=== PATIENT | male | born 1940 | race Caucasian/White ===

== ENCOUNTER 2016-12-27 05:01 | Emergency (ER) | payer MEDICARE, MEDICAID ==
[2016-12-27] MEDS ORDERED: SINGULAIR10 MG PO (22:36)
[2016-12-27] MEDS ORDERED: PROTONIX40 MG PO (22:36)
[2016-12-27] MEDS ORDERED: TRAVATAN Z2.5 ML EACH EYE (22:38)
[2016-12-27] MEDS ORDERED: ALPHAGAN 0.2%5 ML EACH EYE (22:38)
[2016-12-27] MEDS ORDERED: FLOMAX0.4 MG PO (22:38)
[2016-12-27] MEDS ORDERED: PEPCID AC20 MG PO (22:39)
[2016-12-27] MEDS ORDERED: SYMBICORT 16010.2 GM INH (22:39)
[2016-12-28] MEDS ORDERED: ACETAMINOPHEN325 MG PO (05:46)
[2016-12-28] MEDS ORDERED: BUMETANIDE0.5 MG PO (05:47)
[2016-12-28] MEDS ORDERED: NASCOBAL1 EACH NASAL (05:48)
[2016-12-28] MEDS ORDERED: VITAMIN D31000 UNI2 PO (05:48)
[2016-12-28] MEDS ORDERED: FERROUS SULFAT325 MG PO (05:49)
[2016-12-28] MEDS ORDERED: ATIVAN0.5 MG PO (05:51)
[2016-12-28] MEDS ORDERED: MIRALAX17 GM PO (05:52)
[2016-12-28] MEDS ORDERED: ZOCOR40 MG PO (05:53)
[2016-12-28 09:57] VITALS: BMI 17.9
== END 2016-12-27 06:00 | disposition home or self-care (01) ==
LOC: D.ER 05:01
DX: H10.32 Unspecified acute conjunctivitis, left eye (principal); H01.009 Unspecified blepharitis unspecified eye, unspecified eyelid; H40.9 Unspecified glaucoma; J44.9 Chronic obstructive pulmonary disease, unspecified; K58.9 Irritable bowel syndrome, unspecified

== ENCOUNTER 2016-12-27 15:36 | Inpatient (IN) | payer MEDICARE, MEDICAID ==
[~2016-12-27] VITALS: Ht 190.5 cm; Wt 65.3 kg
[2016-12-27 17:07] LABS: APPEARANCE CLEAR (CLEAR); BILIRUBIN NEGATIVE (NEGATIVE); COLOR YELLOW (YELLOW); GLUCOSE NEGATIVE (NEGATIVE); KETONE NEGATIVE (NEGATIVE); LEUKOCYTE ESTERASE NEGATIVE (NEGATIVE); NITRITE NEGATIVE (NEGATIVE); PROTEIN NEGATIVE (NEGATIVE); SPECIFIC GRAVITY 1.015 (1.005-1.020); UROBILINOGEN NORMAL (NORMAL)
[2016-12-27 17:35] LABS: BASOPHILS 0.2 % (0-2); EOSINOPHILS 0.1 % (0-7); HEMATOCRIT 38.9 % (42.0-54.0); HEMOGLOBIN 12.3 g/dL (13.5-17.5); IMMATURE GRANULOCYTES 0.3 % (0-5); MCH 29.6 pg (26.0-34.0); MCHC 31.6 g/dL (31.0-37.0); MCV 93.7 fL (80.0-100.0); MEAN PLATELET VOLUME 9.8 fL (7.4-10.4); MONOCYTES 7.5 % (2-11); NEUTROPHILS 87.9 % (40-80); PLATELET COUNT 201 10x3/uL (130-400); RBC 4.15 10x6/uL (4.20-6.10); RDW 15.1 % (11.5-14.5); WBC 11.8 10x3/uL (4.8-10.8)
[2016-12-27 17:47] LABS: ALBUMIN 3.5 g/dL (3.4-5.0); ANION GAP 13.5 mmol/L (8-16); BILIRUBIN - TOTAL 0.4 mg/dL (0.2-1.3); CALCIUM 9.8 mg/dL (8.5-10.1); CREATININE - SERUM 2.2 mg/dL (0.6-1.3); POTASSIUM - SERUM 4.5 mmol/L (3.5-5.1); PROTEIN - SERUM 7.1 g/dL (6.4-8.2)
[2016-12-27 18:45] LABS: UDS - AMPHET NEGATIVE QUAL (NEGATIVE); UDS - BARB NEGATIVE QUAL (NEGATIVE); UDS - BENZO NEGATIVE QUAL (NEGATIVE); UDS - COCAINE NEGATIVE QUAL (NEGATIVE); UDS - METH NEGATIVE QUAL (NEGATIVE); UDS - OPIATE POSITIVE QUAL (NEGATIVE); UDS - PCP NEGATIVE QUAL (NEGATIVE); UDS - THC NEGATIVE QUAL (NEGATIVE)
--- NOTE | 2016-12-27 22:05 | NUR ---
RECIEVED PT FROM ER VIA BED, AMBULATED TO ROOM, ASSESSMENT COMPLETED ALONG WITH HISTORY, UNABLEL TO COMPLETE MED REC AT THIS TIME DUE TO PT UNABLE TO REMEMBER ALL MEDS, ORIENTED TO ROOM, SR'S UP, CL IN REACH, WILL MONITOR
[2016-12-27] MEDS ORDERED: PROTONIX40 MG PO (22:36)
[2016-12-27] MEDS ORDERED: SINGULAIR10 MG PO (22:36)
[2016-12-27] MEDS ORDERED: TRAVATAN Z2.5 ML EACH EYE (22:38)
[2016-12-27] MEDS ORDERED: ALPHAGAN 0.2%5 ML EACH EYE (22:38)
[2016-12-27] MEDS ORDERED: FLOMAX0.4 MG PO (22:38)
[2016-12-27] MEDS ORDERED: PEPCID AC20 MG PO (22:39)
[2016-12-27] MEDS ORDERED: SYMBICORT 16010.2 GM INH (22:39)
[2016-12-28] VITALS (7 sets, daily range): BP systolic 76–137; BP diastolic 46–80; Ht 190.5 cm; Wt 65.3 kg
[2016-12-28] MEDS ORDERED: ACETAMINOPHEN325 MG PO (05:46)
[2016-12-28] MEDS ORDERED: BUMETANIDE0.5 MG PO (05:47)
[2016-12-28] MEDS ORDERED: VITAMIN D31000 UNI2 PO (05:48)
[2016-12-28] MEDS ORDERED: NASCOBAL1 EACH NASAL (05:48)
[2016-12-28] MEDS ORDERED: FERROUS SULFAT325 MG PO (05:49)
[2016-12-28] MEDS ORDERED: ATIVAN0.5 MG PO (05:51)
[2016-12-28] MEDS ORDERED: MIRALAX17 GM PO (05:52)
[2016-12-28] MEDS ORDERED: ZOCOR40 MG PO (05:53)
--- NOTE | 2016-12-28 07:37 | NUR ---
PATIENT STANDING IN THE DOORWAY OF HIS ROOM WITH HIS CANE. PATIENT IS ALERT AND ORIENTED X4. PATIENT REQUESTING TO CALL HIS SISTER ON THE PHONE. NG TUBE PATENT TO PATIENT'S LEFT NARE AND CONNECTED TO LIS. IV SITE PATENT WITHOUT ANY S/S OF INFECTION NOTED IN PATIENT'S RIGHT HAND. PATIENT DENIES ANY PAIN. ASSESSMENT COMPLETED. SEE FLOWSHEET FOR ANY DETAILS. I CALLED PATIENT'S SISTER, KATIUSKA, AND SHE STATED THAT SHE WOULD BE COMING TO THE HOSPITAL TO VISIT THE PATIENT. CALL LIGHT IN PATIENT'S REACH. WILL MONITOR PATIENT.
--- NOTE | 2016-12-28 15:30 | NUR ---
PATIENT'S NG TUBE DISCONTINUED PER DR. NESBITT'S ORDERS. PATIENT TOLERATED WELL.
[2016-12-29 04:00] VITALS: BP 123/69
[2016-12-29 07:09] LABS: BASOPHILS 0.2 % (0-2); EOSINOPHILS 4.7 % (0-7); HEMATOCRIT 33.5 % (42.0-54.0); HEMOGLOBIN 10.4 g/dL (13.5-17.5); IMMATURE GRANULOCYTES 0.2 % (0-5); LYMPHOCYTES 11.5 % (15-50); MCH 29.5 pg (26.0-34.0); MCV 95.2 fL (80.0-100.0); MEAN PLATELET VOLUME 10.1 fL (7.4-10.4); MONOCYTES 8.8 % (2-11); NEUTROPHILS 74.6 % (40-80); PLATELET COUNT 177 10x3/uL (130-400); RBC 3.52 10x6/uL (4.20-6.10); RDW 15.4 % (11.5-14.5)
[2016-12-29 07:12] LABS: WBC 4.9 10x3/uL (4.8-10.8)
[2016-12-29 07:19] LABS: ANION GAP 9.7 mmol/L (8-16); CALCIUM 8.4 mg/dL (8.5-10.1); CARBON DIOXIDE 26.2 mmol/L (21.0-32.0); POTASSIUM - SERUM 3.9 mmol/L (3.5-5.1)
[2016-12-29 07:22] LABS: CREATININE - SERUM 1.3 mg/dL (0.6-1.3)
[2016-12-29 09:35] VITALS: BP 120/60
--- NOTE | 2016-12-29 10:28 | NUR ---
PATIENT RESTING IN HIS BED. NEW ORDERS RECEIVED. SCHEDULED MORNING MEDICATIONS GIVEN TO PATIENT. PATIENT TOLERATED WELL. PATIENT DENIES ANY NEEDS AT PRESENT TIME. CALL LIGHT IN PATIENT'S REACH. WILL MONITOR.
--- NOTE | 2016-12-29 13:40 | NUR ---
NEW IV SITED TO PATIENT'S LEFT HAND USING A 22 GAUGE CATHETER NEEDLE X1 STICK. PATIENT TOLERATED WELL.
--- NOTE | 2016-12-29 18:20 | NUR ---
PATIENT RESTING IN THE BED AND WATCHING T.V. PATIENT DENIES ANY NEEDS AT PRESENT TIME. CALL LIGHT IN PATIENT'S REACH. WILL MONITOR.
[2016-12-29 18:22] VITALS: BP 118/64
--- NOTE | 2016-12-29 19:35 | NUR ---
RECIEVED SHIFT REPORT. PT IS LYING IN BED. ALERT AND ORIENTED AND ABLE TO VERBALIZE NEEDS. IV IS PATENT AND FLUIDS ARE RUNNING PER ORDER. PT IS AMBULATORY BUT WAS INSTRUCTED TO CALL FOR ANY ASSISTANCE NEEDED. PT DENIES ANY PAIN AT THIS TIME. NO NEEDS ARE VERBALIZED AT THIS TIME. WILL CONTINUE TO MONITOR. SIDE RAILS ARE UP X 2. BED IS IN LOWEST POSITION. CALL LIGHT IS WITHIN REACH.
[2016-12-29 20:00] VITALS: BP 118/64
--- NOTE | 2016-12-29 20:35 | NUR ---
SHIFT ASSESSMENT COMPLETED. NIGHT MEDS GIVEN WITH NO PROBLEMS. NO NEEDS ARE VOICED. WILL MONITOR. SIDE RAILS X 2. BED LOW. CALL LIGHT IN REACH.
[2016-12-30 04:00] VITALS: BP 117/63
[2016-12-30 07:00] LABS: BASOPHILS 0.2 % (0-2); EOSINOPHILS 4.4 % (0-7); HEMOGLOBIN 10.7 g/dL (13.5-17.5); LYMPHOCYTES 14.3 % (15-50); MCH 30.1 pg (26.0-34.0); MCHC 31.5 g/dL (31.0-37.0); MCV 95.8 fL (80.0-100.0); MEAN PLATELET VOLUME 10.3 fL (7.4-10.4); MONOCYTES 11.3 % (2-11); NEUTROPHILS 69.8 % (40-80); PLATELET COUNT 174 10x3/uL (130-400); RBC 3.55 10x6/uL (4.20-6.10); RDW 15.5 % (11.5-14.5)
[2016-12-30 07:09] LABS: ANION GAP 9.5 mmol/L (8-16); CALCIUM 7.8 mg/dL (8.5-10.1); CREATININE - SERUM 1.1 mg/dL (0.6-1.3); POTASSIUM - SERUM 3.5 mmol/L (3.5-5.1)
--- NOTE | 2016-12-30 07:50 | NUR ---
ASSESSMENT COMPLETE. IV TO L HAND PATENT. BLIND IN R EYE. COMPLAINING OF HAVING DECREASED VISION TO L EYE. DENIES ANY NEEDS AT PRESENT.
[2016-12-30 08:25] VITALS: BP 135/70
--- NOTE | 2016-12-30 10:00 | NUR ---
UP AMBULATING IN HALLWAY WITH CANE. STATES "HE JUST CAN'T STAY IN ROOM". WHEN ASKED ABOUT TAKING ANXIETY MEDICATIONS AT HOME, HE STATES HE DOESN'T TAKE THEM BECAUSE THEY ARE TOO STRONG.
--- NOTE | 2016-12-30 11:38 | NUR ---
Patient Name: SADI ALCALA Admission Status: ER Accout number: [id number] Admission Date: 12-27-2016 : 1940 Admission Diagnosis: Attending: TAD Current LOS: 3 Anticipated DC Date: 12-31-2016 Planned Disposition: Home with Home Health Primary Insurance: MEDICARE A & B Discharge Planning Comments: CM MET WITH PATIENT REGARDING D/C NEEDS AND PLANS. PATIENT STATED HE LIVES ALONE AND HIS SISTER (JULIA) WILL PICK HIM UP AT DISCHARGE. PATIENT STATED HE HAS ONE STEP TO ENTER HOME AND NO STAIRS INSIDE. PATIENT IS INDEPENDENT WITH HIS CARE AND HAS A WALKER, OXYGEN HS, PORT O2, AND NEBULIZER AT HOME. PATIENTS PCP IS DR. MENDOZA AT [facility] AND USES [facility] [address] FOR HIS PHARMACY. PATIENT IS CURRENT WITH [facility] [employer]. CM WILL CONTINUE TO FOLLOW PATIENT WITH D/C NEEDS AND PLANS. PCP DR. REJI ANDINO ON [address] [phone] JULIA (SISTER) [phone] CURRENT [facility] [phone] Feeder Operator Automatic: Fide Morales
--- NOTE | 2016-12-30 11:41 | NUR ---
Is the patient Alert and Oriented? Yes 0 * How many steps to enter\exit or inside your home? 1 0 * PCP DR. MENDOZA 0 * Pharmacy [facility] [address] 0 * Preadmission Environment Home Alone 0 * ADLs Independent 0 * Equipment Nebulizer Oxygen Walker 0 * Other Equipment PORTABLE O2 0 * List name and contact numbers for known caregivers / representatives who currently or will assist patient after discharge: JULIA BRAND (SISTER) [phone] 0 * Community resources currently utilized Home Health 0 * Please name any agencies selected above. [facility] 0 * Additional services required to return to the preadmission environment? Yes 0 * Can the patient safely return to the preadmission environment? Yes 0 * Has this patient been hospitalized within the prior 30 days at any hospital? No 0 Grand Total: 0
[2016-12-30 12:53] VITALS: BP 107/64
--- NOTE | 2016-12-30 14:03 | NUR ---
NO CHANGES NOTED AT PRESENT.
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
--- NOTE | 2016-12-30 14:25 | NUR ---
NUTRITION MONITORING & EVAL CHART REVIEWED, PT CURRENTLY RESTING. DIET ADVANCED TO REG WITH 100% INTAKE LUNCH. RD FOLLOWING
--- NOTE | 2016-12-30 14:51 | NUR ---
LATE ENTRY 11:32: CM HAD VISITED PATIENT REGARDING HIS D/C NEEDS THIS AM AND HE HAD STATED HE WAS SO SICK THAT HE TOLD HOME HEALTH "WHAT DO I HAVE TO DO - KILL MYSELF" THEN HE SAID 2 DEPUTIES CAME TO HIS HOME WITH AN AMBULANCE AND BROUGHT HIM TO THE HOSPITAL WHERE HE GOT THE CARE HE NEEDED. PATIENT STATED "I WAS SO SICK I HAD TO DO SOMETHING". CM WILL CONTINUE TO FOLLOW PATIENT WITH D/C NEEDS AND PLANS.
[2016-12-30 15:57] VITALS: BP 121/65
--- NOTE | 2016-12-30 18:13 | NUR ---
RESTING QUIETLY IN BED AT THIS TIME. DENIES ANY NEEDS AT PRESENT.
--- NOTE | 2016-12-30 19:35 | NUR ---
RECIEVED SHIFT REPORT. PT IS LYING IN BED. ALERT AND ORIENTED AND ABLE TO VERBALIZE NEEDS. IV IS PATENT AND FLUIDS ARE RUNNING PER ORDER.PT IS AMBULATORY BUT WAS INSTRUCTED TO CALL FOR ANY ASSISTANCE NEEDED. PT DENIES ANY PAIN AT THIS TIME. NO NEEDS ARE VERBALIZED AT THIS TIME. WILL CONTINUE TO MONITOR. SIDE RAILS ARE UP X 2. BED IS IN LOWEST POSITION. CALL LIGHT IS WITHIN REACH.
[2016-12-30 20:00] VITALS: BP 120/74
--- NOTE | 2016-12-30 20:42 | NUR ---
SHIFT ASSESSMENT COMPLETED. NIGHT MEDS GIVEN WITH NO PROBLEMS. NO NEEDS ARE VOICED. WILL MONITOR. SIDE RAILS X 2. BED LOW. CALL LIGHT IN REACH.
[2016-12-31 04:00] VITALS: BP 131/72
--- NOTE | 2016-12-31 07:50 | NUR ---
PT AOX4 RESP EVEN AND NONLABORED PT DENIES NEEDS AT THIS TIME IV TO RIGHT UPPER ARM PATENT AND INTACT AT THIS TIME SRX2 BED AT LOWEST SETTING CALL LIGHT WITHIN REACH WILL CONTINUE TO MONITOR
--- NOTE | 2016-12-31 08:39 | NUR ---
CM REASSESSMENT NOTE: PATIENT IS DISCHARGING HOME TODAY AND HIS SISTER WILL DRIVE HIM HOME. PATIENT IS CURRENT WITH [facility] AND THEY HAVE BEEN NOTIFIED OF HIS DISCHARGE TODAY.
[2016-12-31 08:58] VITALS: BP 117/74
--- NOTE | 2016-12-31 09:43 | NUR ---
PT IV DISCONTINUE WITH CATHETER INTACT AT THIS TIME. PT GIVEN DISCHARGE PAPERWORK WITH HOME MED LIST AT THIS TIME AND STATES UNDERSTANDING OF INSTRUCTIONS. PT TRANSFERRED VIA WHEELCHAIR VIA PRIVATE VEHICLE AT THIS TIME
== END 2016-12-31 09:49 | disposition home or self-care (01) | DRG 390 ==
LOC: D.ER 15:36 → D.MS 20:05
PROVIDERS: Emergency Medicine; Nurse Practitioner Acute Care; ADMIT Surgery
PROC: 0D9670Z Drainage of Stomach with Drainage Device, Via Natural or Artificial Opening (ICD-10-PCS; principal; 2016-12-27)
DX: K56.60 Unspecified intestinal obstruction (principal); H40.9 Unspecified glaucoma; J44.9 Chronic obstructive pulmonary disease, unspecified; I50.9 Heart failure, unspecified

== ENCOUNTER 2017-02-10 17:22 | Inpatient (IN) | payer MEDICARE ==
[~2017-02-10] VITALS: Ht 190.5 cm; Wt 65.5 kg
[~2017-02-10 17:22] MED LIST: ACETAMINOPHEN325 MG PO; ALPHAGAN 0.2%5 ML EACH EYE; ATIVAN0.5 MG PO; BUMETANIDE0.5 MG PO; FERROUS SULFAT325 MG PO; FLOMAX0.4 MG PO; MIRALAX17 GM PO; NASCOBAL1 EACH NASAL; PEPCID AC20 MG PO; PROTONIX40 MG PO; SINGULAIR10 MG PO; SYMBICORT 16010.2 GM INH; TRAVATAN Z2.5 ML EACH EYE; VITAMIN D31000 UNI2 PO; ZOCOR40 MG PO
[2017-02-10 18:48] LABS: BASOPHILS 0.5 % (0-2); EOSINOPHILS 2.1 % (0-7); HEMATOCRIT 38.3 % (42.0-54.0); HEMOGLOBIN 11.9 g/dL (13.5-17.5); IMMATURE GRANULOCYTES 0.2 % (0-5); LYMPHOCYTES 16.1 % (15-50); MCH 29.7 pg (26.0-34.0); MCHC 31.1 g/dL (31.0-37.0); MCV 95.5 fL (80.0-100.0); MEAN PLATELET VOLUME 10.7 fL (7.4-10.4); MONOCYTES 14.6 % (2-11); NEUTROPHILS 66.5 % (40-80); PLATELET COUNT 171 10x3/uL (130-400); RBC 4.01 10x6/uL (4.20-6.10); RDW 14.6 % (11.5-14.5); WBC 5.7 10x3/uL (4.8-10.8)
[2017-02-10 19:01] LABS: ALBUMIN 3.2 g/dL (3.4-5.0); ANION GAP 7.9 mmol/L (8-16); BILIRUBIN - TOTAL 0.33 mg/dL (0.2-1.3); CALCIUM 8.7 mg/dL (8.5-10.1); CARBON DIOXIDE 31.2 mmol/L (21.0-32.0); CREATININE - SERUM 1.7 mg/dL (0.6-1.3); POTASSIUM - SERUM 5.1 mmol/L (3.5-5.1); PROTEIN - SERUM 6.2 g/dL (6.4-8.2)
[2017-02-10 21:41] LABS: ERYTHROCYTE SEDIMENTATION RATE 12 mm/hr (0-20)
[2017-02-10 22:43] LABS: UDS - AMPHET NEGATIVE QUAL (NEGATIVE); UDS - BARB NEGATIVE QUAL (NEGATIVE); UDS - BENZO NEGATIVE QUAL (NEGATIVE); UDS - COCAINE NEGATIVE QUAL (NEGATIVE); UDS - METH NEGATIVE QUAL (NEGATIVE); UDS - OPIATE NEGATIVE QUAL (NEGATIVE); UDS - PCP NEGATIVE QUAL (NEGATIVE); UDS - THC NEGATIVE QUAL (NEGATIVE)
[2017-02-11 01:00] VITALS: BP 128/81; BMI 18.6
[2017-02-11 01:14] LABS: APPEARANCE CLEAR (CLEAR); BILIRUBIN NEGATIVE (NEGATIVE); COLOR YELLOW (YELLOW); GLUCOSE NEGATIVE (NEGATIVE); KETONE NEGATIVE (NEGATIVE); LEUKOCYTE ESTERASE NEGATIVE (NEGATIVE); NITRITE NEGATIVE (NEGATIVE); PROTEIN NEGATIVE (NEGATIVE); UROBILINOGEN NORMAL (NORMAL)
--- NOTE | 2017-02-11 02:31 | NUR ---
NEW ADMIT TO DOCTOR SPENCE FROM [facility] ED. PATIENT RECEIVED VIA WHEELCHAIR WITH ED STAFF AT HIS SIDE. FAMILY CONTACTED AND INFORMED OF ADMIT. PATIENT SIGNED ADMISSION CONSENTS. HE LIVES AT HOME ALONE. STATES THAT HE HAS BEEN HAVING SOME THOUGHTS OF SELF HARM BUT DENIES THEM AT THIS TIME. STATING THAT HE JUST WANTS TO FEEL BETTER. VITALS ARE STABLE. ALERT AND ORIENTED X3. PLEASANT. COOPERATIVE WITH ASSESSMENT AND CARE.
[2017-02-11 06:51] LABS: CHOL - HDL RATIO 2.9 ratio (2.3-4.9); LDL-HDL RATIO 1.6 ratio (1.5-3.5); THYROID STIMULATING HORMONE 9.85 uIU/mL (0.36-3.74)
[2017-02-11] MEDS ORDERED: SYNTHROID50 MCG PO (08:40)
[2017-02-11] MEDS ORDERED: ZYLOPRIM100 MG PO (08:42)
[2017-02-11 09:04] VITALS: BP 118/72
--- NOTE | 2017-02-11 19:30 | NUR ---
AWAKE AND ORIENTED X 3. CALM AND COOPERATIVE WITH ASSESSMENT. DENIES SI. AMBULATES WITH A WALKER. REDIRECT AND REORIENT NEEDED. RESTLESS WAITING FOR SISTER TO CALL. FALLS AND SAFETY MAINTAINED. CONTINUE POC.
[2017-02-11 19:34] VITALS: BP 119/62
[2017-02-11 19:42] VITALS: BP 119/62
--- NOTE | 2017-02-11 21:50 | NUR ---
RECEIVED IN HALLWAY OUTSIDE OF NURSES STATION. CALM AND COOPERATIVE WITH CARE AND ASSESSMENTS. DENIES THOUGHTS OF SELF HARM. ENCOURAGE TO EXPRESS NEEDS. RESTING IN BED EYES CLOSED AT THIS TIME. CONTINUE PLAN OF CARE
[2017-02-12 07:27] LABS: RAPID PLASMA REAGIN Non Reactive (Non Reactive); VITAMIN D 25 HYDROXY 60.7 ng/mL (30.0-100.0)
[2017-02-12 07:32] VITALS: BP 117/68
[2017-02-12 08:18] LABS: FOLATE (FOLIC ACID) - SERUM >20.0 ng/mL (>3.0)
--- NOTE | 2017-02-12 08:30 | NUR ---
COMPLAINED OF "FEELING SICK SINCE HE TOOK AM MEDS." VSS. NO N/V NOTED. HEART RATE WAS A LITLLE IRREGULAR, WHICH HE SAYS IT DOES AT TIMES.
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
[2017-02-12 19:51] VITALS: BP 130/76
--- NOTE | 2017-02-13 00:47 | NUR ---
B) Patient alert and oriented calm and cooperative with care and assessment, I) Administered perscribed medications, R) Medication compliant, resting now quietly, P) Continue plan of care.
--- NOTE | 2017-02-13 00:49 | NUR ---
Patient turned off alarm to go to bathroom unassisted, he lost his balance and fell head first into the floor, abrasion to left side of head and left knees, skin tear to right wrist, family called, neuro checks started, at 22:45, patient reminded to not turn off his alarms, will continue to monitor.
[2017-02-13 07:48] VITALS: BP 121/72
--- NOTE | 2017-02-13 09:00 | NUR ---
ASSESSMENT COMPLETED. CALM AND COOPERATIVE WITH ASSESSMENT AND CARE. NEURO CHECKS AND VITAL SIGNS IN PROGRESS. DENIES ANY PAIN, HEADACHE OR NAUSEA/VOMITTING. WILL CONTINUE TO MONITOR CLOSELY.
[2017-02-13 12:56] VITALS: BMI 18.6
--- NOTE | 2017-02-13 13:00 | NUR ---
X-RAY OF BILATERAL KNEES DONE IN PATIENT ROOM.
--- NOTE | 2017-02-13 13:34 | PN ---
PATIENT:SADI ALCALA MEDICAL RECORD: [id number] LOCATION:[facility] ADMISSION DATE: 02/10/17 PROGRESS NOTE DATE OF SERVICE: 02/12/2017 SUBJECTIVE: The patient's case was discussed with staff. He has no new complaint. OBJECTIVE: The patient is in good behavioral control with poor insight about his condition. He generally tolerates his medicines well. He has not made any threats to harm himself today. He has tolerated his initial dose of Zoloft reasonably well. ASSESSMENT: Major depression. PLAN: The patient's current medicines have been reviewed and will be maintained. His long-term prognosis is guarded. Brief supportive and educational interventions were made. TRANSINT:[id number] Voice Confirmation ID: [id number] DOCUMENT ID: [id number] YOLI SPENCE MD at 1334 CC: [id number] DICTATION DATE: 02/12/17 1235 COMBAT CONTROL: 02/12/17 2108 ADM IN [place] [id number] [place] [id number]
--- NOTE | 2017-02-13 15:00 | NUR ---
TO RADIOLOGY FOR CT OF HEAD WITHOUT CONTRAST.
--- NOTE | 2017-02-13 20:05 | NUR ---
Patient's brother called at 19:40, when told that telephone time had ended at 1900 he demanded to speak with the nurse. This nurse repeated that telephone time was 17: till 19:00, the Family member said that he was friends with the Governor and that I should break the rules if I knew what was good for me. I repeated that I would follow our department rules.
[2017-02-13 20:10] VITALS: BP 125/67
--- NOTE | 2017-02-14 03:20 | NUR ---
B) Alert and oriented , calm and cooperative, social with peers and staff, friendly, I) Administered perscribed medications, monitored for falls and safety, encouaged walker use, R) medication compliant, resting quietly in bed, P) Continue plan of care.
[2017-02-14 07:54] VITALS: BP 136/76
--- NOTE | 2017-02-14 15:43 | NUR ---
LATE ENTRY FROM 02/13/2017 SW MET WITH PT AND PT'S SISTER DURING FAMILY GROUP TO DISCUSS DISCHARGE PLANNING AND CARE BEING ADMINISTERED ON UNIT. BOTH PT AND SISTER VERBALIZED UNDERSTANDING AND STATED THEY APPRECIATED THE SERVICES.
--- NOTE | 2017-02-14 16:24 | NUR ---
calm, cooperative with care. pt has been more social and participated in groups. no aggression noted. denies Si and depression. pt affect has been appropriate to mood and no longer flat today. medications given as ordered. pt ambulate with a walker. fall precautions maintained. will continue to monitor and continue with plan of care.
[2017-02-14 19:30] VITALS: BP 137/76
--- NOTE | 2017-02-15 00:56 | NUR ---
B) Patient alert and oriented X 4, calm and cooperative with care and assessment, I) Administered scheduled medications, monitored for falls and safety, R) Medication compliant, friendly and pleasant, P) Continue plan of care.
[2017-02-15 07:47] VITALS: BP 125/74
--- NOTE | 2017-02-15 15:52 | NUR ---
ASSESSMENT COMPLETED. CALM AND COOPERATIVE WITH CARE. DENIES ANY SI. OR DEPRESSION. HAS BEEN MORE SOCIAL WITH PEERS AND STAFF. AFFECT RELAXED. AMBULATES WITH A WALKER. FALL PRECAUTIONS MAINTAINED. CONTINUE PLN OF CARE.
[2017-02-15 19:30] VITALS: BP 127/66
--- NOTE | 2017-02-16 03:09 | NUR ---
B) Patient alert and oriented X3, calm and friendly, social with staff and peers, I) Administered scheduled medications, monitored for falls, R) Medication compliant, resting quietly zeinab, P) Continue plan of care.
--- NOTE | 2017-02-16 05:30 | PN ---
PATIENT:SADI ALCALA MEDICAL RECORD: [id number] LOCATION:[facility] ADMISSION DATE: 02/10/17 PROGRESS NOTE DATE OF SERVICE: 02/14/2017 SUBJECTIVE: No new complaint. OBJECTIVE: The patient is cooperative with staff. He is taking medication as prescribed. He is less withdrawn overall. On exam, mood is euthymic. Affect is bland. Speech is somewhat terse, but otherwise fluent. Content of thought is unchanged. Sensorium unchanged. ASSESSMENT: No change in diagnosis. PLAN: 1. Continue all current medications. 2. Continue supportive therapy. TRANSINT:[id number] Voice Confirmation ID: [id number] DOCUMENT ID: [id number] ELTON SOLITARIO III, MD at 0530 CC: [id number] DICTATION DATE: 02/14/17 1234 JAVA DEVELOPER: 02/14/172014 ADM IN [facility] [address] [place] [id number]
[2017-02-16 08:07] VITALS: BP 145/86
--- NOTE | 2017-02-16 18:14 | NUR ---
ALERT AND ORIENTED X 3.AMBULATORY WITH WALKER.COMPLIANT WITH STAFF AND MEDS.LARGE AMOUNT OF BRUISEING TO LEFT FOREHEAD AND EYE FROM OLD FALL.WILL CONTINUE WITH PLAN OF CARE ,MONITOR FOR CHANGES AND SAFETY.
[2017-02-16 20:01] VITALS: BP 159/88
--- NOTE | 2017-02-16 21:32 | NUR ---
RECEIVED IN DAYROOM. SITTING WITH PEERS AT HIS SIDE. CALM AND COOPERATIVE WITH CARE AND ASSESSMENTS. ALERT AND ORIENTED. ENCOURAGE TO EXPRESS NEEDS. CONTINUE TO SIT QUIETLY WITH PEERS. CONTINUE PLAN OF CARE
[2017-02-17 07:00] VITALS: BP 141/87
--- NOTE | 2017-02-17 13:11 | PN ---
PATIENT:SADI ALCALA MEDICAL RECORD: [id number] LOCATION:[facility] ADMISSION DATE: 02/10/17 PROGRESS NOTE DATE OF SERVICE: 02/13/2017 SUBJECTIVE: The patient's case was discussed with staff. He has no new complaint. OBJECTIVE: The patient denies intent to harm himself or others. He tolerates his medicines well. He did fall last night when he went to the bathroom. He has a pretty good size bruise on the left side of his forehead. There is no obvious change to him either cognitively or neurologically, but because of his underlying glaucoma, it is not really possible to check his pupillary reaction very well. As a matter of caution, he is going to have neuro imaging of his head and an x-ray of his knee. The patient is looking less depressed. I do not think it is because he is taking a low dose of Zoloft. My formulation of the situation is becoming increasingly convinced that the patient does not need to be living alone and isolating in this manner and that is a significant contributing factor to his presentation. ASSESSMENT: No change in diagnoses. PLAN: Current medicines have been reviewed. X-ray studies are pending. Dr. Libby Hickey is going to test him tomorrow. I do not believe he is intact and I am going to guess he is probably going to score in the mild range of impairment. TRANSINT:[id number] Voice Confirmation ID: [id number] DOCUMENT ID: [id number] YOLI SPENCE MD at 1311 CC: [id number] DICTATION DATE: 02/13/17 1353 CHIP TUNER: 02/13/17 1922 ADM IN [facility] [address] [place] [id number]
[2017-02-17 19:45] VITALS: BP 125/66
--- NOTE | 2017-02-18 02:12 | NUR ---
RECEIVED IN BEDROOM. RESTING IN BED EYES CLOSED. CALM AND COOPERATIVE WITH CVARE AND ASSESSMENTS. DENIES BEING DEPRESSED AT THIS TIME. CALM AND COOPERATIVE WITH CARE AND ASSESSMENTS. ENCOURAGE TO EXPRESS NEEDS. RESTING EYES CLOSED AT THIS TIME. CONTINUE PLAN OF CARE
[2017-02-18 07:57] VITALS: BP 149/80
--- NOTE | 2017-02-18 10:42 | NUR ---
PT IS A&O THIS AM. PT AM MEDS ADMINISTERED. PT COMPLIANT WITH MEDICATION. PT IN DAY ROOM RESTING WITH EYES CLOSED AT THIS TIME, RR ARE EVEN AND REGULAR. WCPOC.
--- NOTE | 2017-02-18 13:45 | PN ---
PATIENT:SADI ALCALA MEDICAL RECORD: [id number] LOCATION:[facility] ADMISSION DATE: 02/10/17 PROGRESS NOTE DATE OF SERVICE: 02/17/2017 SUBJECTIVE: The patient's case was discussed with staff. He has no new complaint. OBJECTIVE: The patient is in good behavioral control with poor insight about his condition. He does tolerate his medicines well. ASSESSMENT: No change in diagnoses. PLAN: The patient is going to be treated with a slightly higher dose of Zoloft. He has had no significant agitated behavior today. Long-term prognosis is guarded. TRANSINT:[id number] Voice Confirmation ID: [id number] DOCUMENT ID: [id number] YOLI SPENCE MD at 1345 CC: [id number] DICTATION DATE: 02/17/17 1335 CARDIAC SONOGRAPHER: 02/17/17 1844 ADM IN [facility] [address] [place] [id number]
[2017-02-18] MEDS ORDERED: ARTIFICIAL TEAR15 ML EACH EYE (14:28)
[2017-02-18] MEDS ORDERED: ZOLOFT50 MG PO (14:28)
--- NOTE | 2017-02-18 17:20 | NUR ---
DR. FLOWERS CALLED TO CLARIFY FOR BOTH EYE DROPS T O STILL BE ORDERED.
[2017-02-18 19:26] VITALS: BP 129/72
--- NOTE | 2017-02-18 22:28 | NUR ---
RECEIVED IN DAYROOM. WALKING ABOUT UNIT. CALM AND COOPERATIVE WITH CARE AND ASSESSMENTS. DENIES FEELING DEPRESSED. ALERT AND ORIENTED X3. ENCOURAGE TO EXPRESS NEEDS. RESTING EYES CLOSED AT THIS TIME. CONTINUE PLAN OF CARE
[2017-02-19 08:12] VITALS: Ht 190.5 cm; Wt 65.5 kg
[2017-02-19 08:39] VITALS: BP 124/77
--- NOTE | 2017-02-19 08:45 | NUR ---
PT IS CALM, COOPERAVTIVE. ORIENTED X 3. REVIEWED DISCHARGE PAPERWORK AND INSTRUCTIONS WITH THE PT AND HE VERBALIZED UNDERSTANDING. FOLLOW-UP APPT MADE AND PAPERWORK FAXED TO DR. MENDOZA HIS PCP. MEDICATIONS CALLED INTO [facility] [address]. BELONGINGS GATHERED. FALL PRECAUTIONS MAINTAINED.
--- NOTE | 2017-02-19 12:35 | PN ---
PATIENT:SADI ALCALA MEDICAL RECORD: [id number] LOCATION:[facility] ADMISSION DATE: 02/10/17 PROGRESS NOTE DATE OF SERVICE: 02/18/2017 SUBJECTIVE: The patient's case was discussed with staff. He has no new complaint. OBJECTIVE: The patient is in good behavioral control. He has no active thoughts of harming himself or others. His testing from Dr. Alvarado indicates that he is mildly impaired. His family is going to monitor him and take care of him. This is what he wants and they are willing to do it. I do not think it is going to be enough supervision, but it does not rise to the level of me reporting it to the authorities. His long-term prognosis is guarded. TRANSINT:[id number] Voice Confirmation ID: [id number] DOCUMENT ID: [id number] YOLI SPENCE MD at 1235 CC: [id number] DICTATION DATE: 02/18/17 1426 VICE PRESIDENT FINANCIAL: 02/18/17 1552 ADM IN [place] [id number] [place] [address]
--- NOTE | 2017-02-19 14:18 | NUR ---
Nutrition Follow Up: Chart reviewed. Pt is eating 100% meal avg on a regular diet. No new labs to assess. +BM 02/18/17. Meds noted. Rec continue current diet. RD following.
--- NOTE | 2017-02-19 15:00 | NUR ---
B) Alert, calm, cooperative, med compliant, pleasant mood. Appetite good, feeds self. I) Meds admin per orders, group therapy provided. R) Cassie meds well, cooperative with group. P) Cont plan of care until discharge home.
--- NOTE | 2017-02-19 15:05 | NUR ---
Belongings packed and returned to patient, pt alert, calm, followup appointments made, meds called in to pharmacy, patient discharged home in care of daughter, patient cheerful and looking forward to going home. Patient assisted to private vehicle per staff for transport home.
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
== END 2017-02-19 15:00 | disposition home or self-care (01) | DRG 885 ==
LOC: D.ER 17:22 → D.PSYCH 23:58
PROVIDERS: Nurse Practitioner Acute Care; Physician Assistant; ADMIT Psychiatry & Neurology Psychiatry
DX: F32.2 Major depressive disorder, single episode, severe without psychotic features (principal); N17.9 Acute kidney failure, unspecified; E03.9 Hypothyroidism, unspecified; H40.9 Unspecified glaucoma; E78.5 Hyperlipidemia, unspecified; M10.9 Gout, unspecified; K57.90 Diverticulosis of intestine, part unspecified, without perforation or abscess without bleeding; Z91.81 History of falling; H10.9 Unspecified conjunctivitis; J44.9 Chronic obstructive pulmonary disease, unspecified; N40.0 Benign prostatic hyperplasia without lower urinary tract symptoms; E86.0 Dehydration; S00.83XD Contusion of other part of head, subsequent encounter; W19.XXXD Unspecified fall, subsequent encounter

== ENCOUNTER → 2018-09-25 12:48 | Outpatient (CLI) | payer MEDICARE ==
[2017-02-19 08:12] VITALS: BMI 18.0
[~2018-09-25 12:48] MED LIST changes: +ARTIFICIAL TEAR15 ML EACH EYE; +SYNTHROID50 MCG PO; +ZOLOFT50 MG PO; +ZYLOPRIM100 MG PO
== END | disposition home or self-care (01) ==
LOC: D.RAD 12:48
PROVIDERS: ATTEND Family Medicine
DX: R13.10 Dysphagia, unspecified (principal)

== ENCOUNTER → 2019-12-01 15:00 | Outpatient (CLI) | payer MEDICARE ==
[2017-02-19 08:12] VITALS: BMI 18.0
[2019-12-01 19:15] LABS: ALBUMIN 2.7 g/dL (3.4-5.0); BILIRUBIN - TOTAL 0.25 mg/dL (0.2-1.3); CALCIUM 8.7 mg/dL (8.5-10.1); CARBON DIOXIDE 23.7 mmol/L (21.0-32.0); CREATININE - SERUM 1.5 mg/dL (0.6-1.3); POTASSIUM - SERUM 5.7 mmol/L (3.5-5.1); PROTEIN - SERUM 6.7 g/dL (6.4-8.2)
[2019-12-01 19:28] LABS: BASOPHILS 0.2 % (0-2); EOSINOPHILS 3.2 % (0-7); HEMATOCRIT 35.4 % (42.0-54.0); HEMOGLOBIN 10.9 g/dL (13.5-17.5); IMMATURE GRANULOCYTES 0.2 % (0-5); LYMPHOCYTES 19.2 % (15-50); MCH 29.4 pg (26.0-34.0); MCHC 30.8 g/dL (31.0-37.0); MCV 95.4 fL (80.0-100.0); MEAN PLATELET VOLUME 10.4 fL (7.4-10.4); MONOCYTES 9.1 % (2-11); NEUTROPHILS 68.1 % (40-80); RBC 3.71 10x6/uL (4.20-6.10); RDW 14.6 % (11.5-14.5); WBC 6.6 10x3/uL (4.8-10.8)
[2019-12-01 19:30] LABS: PLATELET COUNT 219 10x3/uL (130-400)
== END | disposition home or self-care (01) ==
LOC: D.LABREF 15:00
PROVIDERS: ATTEND Internal Medicine
DX: I13.0 Hypertensive heart and chronic kidney disease with heart failure and stage 1 through stage 4 chronic kidney disease, or unspecified chronic kidney disease (principal); I50.9 Heart failure, unspecified; N18.3 Chronic kidney disease, stage 3 (moderate)

== ENCOUNTER → 2020-02-17 20:01 | Outpatient (CLI) | payer MEDICARE ==
[2017-02-19 08:12] VITALS: BMI 18.0
[2020-02-17 20:46] LABS: BILIRUBIN NEGATIVE (NEGATIVE); GLUCOSE NEGATIVE (NEGATIVE); KETONE NEGATIVE (NEGATIVE); NITRITE NEGATIVE (NEGATIVE); UROBILINOGEN NORMAL (NORMAL)
== END | disposition home or self-care (01) ==
LOC: D.LABREF 20:01
PROVIDERS: ATTEND Urology
DX: N30.01 Acute cystitis with hematuria (principal); N40.1 Benign prostatic hyperplasia with lower urinary tract symptoms; R33.8 Other retention of urine